=== PATIENT | female | born 2000 ===

== ENCOUNTER 2021-11-16 16:15 | Emergency (ER) | payer SELFPAY ==
[2021-11-16] MEDS ORDERED: SODIUM CHLORIDE 0.9% 1000 ML 1,000 ML IV ONE (16:24)
[2021-11-16] MEDS ORDERED: charcoal activated SOLUTION 25 GM/120 ML PO ONE (16:26)
--- NOTE | 2021-11-16 16:31 | Emergency Department Report ---
ED General Adult HPI - General Chief complaint: Overdose Stated complaint: SI/OD PUI?: No Time Seen by Provider: 11/16/21 16:17 Source: patient, EMS Mode of arrival: Stretcher Limitations: No Limitations - History of Present Illness Initial comments: 21-year-old female brought in by EMS with concerns of overdose of Benadryl; acco rding to patient she took Benadryl about 20 tablets about 30 minutes ago. At the time of evaluation patient is alert oriented x4 patient denies any other discomforts. Patient's motivation is to self-harm. Patient denies fever chills respiratory symptoms or chest pain short of breath cough abdominal pain nausea vomiting or constipation joint pain muscle pain new rash heat or cold intolerance. Patient denies visual auditory and also tactile hallucination. Patient denies homicidal ideation. - Related Data Allergies Allergy/AdvReac Type Severity Reaction Status Date / Time No Known Allergies Allergy Verified 11/16/21 16:19 ED Review of Systems ROS: Stated complaint: SI/OD Other details as noted in HPI Constitutional: see HPI Eyes: as per HPI ENT: as per HPI Respiratory: see HPI Cardiovascular: as per HPI Endocrine: see HPI Gastrointestinal: as per HPI Genitourinary: as per HPI Musculoskeletal: as per HPI Skin: as per HPI Neurological: as per HPI Psychiatric: as per HPI Hematological/Lymphatic: as per HPI ED Past Medical Hx - Past Medical History Previous Medical History?: No - Surgical History Past Surgical History?: No ED Physical Exam - General Limitations: No Limitations General appearance: alert, in no apparent distress, other (TEARFUL; AOX4, GCS15) - Head Head exam: Present: atraumatic, normocephalic, normal inspection - Eye Eye exam: Present: normal appearance Pupils: Present: normal accommodation - ENT ENT exam: Present: normal exam, normal orophraynx, mucous membranes moist - Neck Neck exam: Present: normal inspection - Respiratory Respiratory exam: Present: normal lung sounds bilaterally, respiratory distress - Cardiovascular Cardiovascular Exam: Present: regular rate, normal rhythm - GI/Abdominal GI/Abdominal exam: Present: soft, normal bowel sounds. Absent: distended, tenderness, guarding, rebound, rigid - Extremities Exam Extremities exam: Present: normal inspection, full ROM - Back Exam Back exam: Present: normal inspection, full ROM. Absent: tenderness - Neurological Exam Neurological exam: Present: oriented X3, CN II-XII intact, normal gait - Psychiatric Psychiatric exam: Present: depressed, suicidal ideation. Absent: manic, homicidal ideation - Skin Skin exam: Present: warm ED Course Vital Signs 11/16/21 11/16/21 16:16 17:05 Temperature 98.6 F Pulse Rate 94 H 96 H Respiratory 16 Rate Blood Pressure 105/65 Blood Pressure 113/76 [Left] O2 Sat by Pulse 98 95 Oximetry ED Medical Decision Making - Lab Data Result diagrams: 11/16/21 16:35 11/16/21 16:35 - EKG Data -: EKG Interpreted by Me (NSR AT 72 BPM; NO ST ELEVATION OR DEPRESSION; NO QT/QTC AT 390/428) EKG shows normal: sinus rhythm, axis, intervals, QRS complexes, ST-T waves Rate: normal - Medical Decision Making 4:50 SPOKE TO POISON CONTROL: Monitor for at least 6-8 hours; watch out for anticholinergic effect, sedative effect, may increase heart rate and also blood pressure. If any seizure or agitation; may give benzo. Get initial EGK for baseline and monitor for any QRS widening. Given its within 2 hours, recommend Charcol. Obtain another acetaminophen and salicylic level 4 hours from initial. Mostly supportive care. Critical care attestation.: If time is entered above; I have spent that time in minutes in the direct care of this critically ill patient, excluding procedure time. ED Disposition Disposition: LEFT AGAINST MEDICAL ADVICE Condition: Stable Referrals: PRIMARY CARE, [Primary Care Provider] - 3-5 Days
[2021-11-16 17:00] LABS: Basophils % (Auto) 0.7 % (0.0-1.8); Eosinophils # (Auto) 0.1 K/mm3 (0.0-0.4); Eosinophils % (Auto) 1.6 % (0.0-4.3); Hematocrit 40.3 % (30.3-42.9); Hemoglobin 13.1 gm/dl (10.1-14.3); Lymphocytes # (Auto) 1.7 K/mm3 (1.2-5.4); Lymphocytes % (Auto) 26.2 % (13.4-35.0); Mean Corpuscular HGB Conc 33 % (30-34); Mean Corpuscular Volume 86 fl (79-97); Monocytes # (Auto) 0.4 K/mm3 (0.0-0.8); Monocytes % (Auto) 5.9 % (0.0-7.3); Platelet Count 180 K/mm3 (140-440); Red Blood Count 4.68 M/mm3 (3.65-5.03); Red Cell Distribution Width 13.7 % (13.2-15.2)
[2021-11-16 17:10] VITALS: BP 105/65
[2021-11-16 17:11] LABS: Alanine Aminotransferase 10 units/L (7-56); Albumin 4.5 g/dL (3.9-5); BUN/Creatinine Ratio 10; Blood Urea Nitrogen 8 mg/dL (7-17); Calcium 9.6 mg/dL (8.4-10.2); Hemolysis Index 4
--- NOTE | 2021-11-16 17:12 | XRay Report ---
CHEST 1 VIEW 11/16/2021 4:54 PM INDICATION / CLINICAL INFORMATION: Overdose. COMPARISON: None available. FINDINGS: SUPPORT DEVICES: None. HEART / MEDIASTINUM: No significant abnormality. LUNGS / PLEURA: No significant pulmonary or pleural abnormality. No pneumothorax. ADDITIONAL FINDINGS: No significant additional findings. IMPRESSION: 1. No acute findings. Signer Name: Cristofer Allen MD Signed: 11/16/2021 5:07 PM Workstation Name: [email or web address]
[2021-11-16 17:17] LABS: HCG Qualitative,Urine Negative (Negative)
--- NOTE | 2021-11-18 10:46 | Electrocardiograph Report ---
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
== END 2021-11-16 18:30 | disposition left against medical advice (07) ==
LOC: ED 16:15
DX: T45.0X1A Poisoning by antiallergic and antiemetic drugs, accidental (unintentional), initial encounter (principal); Y92.89 Other specified places as the place of occurrence of the external cause
CPT/HCPCS: 36415; 71045; 80053; 81025; 85025; 93005; 96360; 99285; J7030; 80320; G0480

== ENCOUNTER 2021-11-16 21:17 | Emergency (ER) | payer SELFPAY ==
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
[2021-11-17] MEDS ORDERED: LORazepam 2 MG/ML VIAL IM PRN (01:00)
--- NOTE | 2021-11-17 01:01 | Event Note ---
Date: 11/17/21 Patient was placed on a 1013. Laboratory studies from recent visit are reviewed and appreciated. Psychiatric team typically request urine drug screen and COVID swab. These have been ordered.
[2021-11-17 01:53] LABS: Amphetamine Screen,Urine PRESUMPTIVE NEGATIVE; Benzodiazepines Screen,Urine PRESUMPTIVE NEGATIVE; Cannabinoid Screen,Urine PRESUMPTIVE NEGATIVE; Cocaine Screen,Urine PRESUMPTIVE NEGATIVE; Methadone Screen,Urine PRESUMPTIVE NEGATIVE; Opiate Screen,Urine PRESUMPTIVE NEGATIVE
--- NOTE | 2021-11-17 12:27 | Consultation ---
History of Present Illness - Reason for Consult Consult date: 11/17/21 Reason for consult: Overdose - History of Present Psychiatric Illness ED Note: 21-year-old female brought in by EMS with concerns of overdose of Benadryl; according to patient she took Benadryl about 20 tablets about 30 minutes ago. At the time of evaluation patient is alert oriented x4 patient denies any other discomforts. Patient's motivation is to self-harm. The patient is a 21 year old female with unknown psychiatric history. In my encounter with the patient, she is calm, alert and oriented to self. She states " I came up here but I'm ready to go now." When asking why she came to the ED she states 'I don't remember." The patient made a suicidal attempt which is serious by degree of lethality and intentional. Will continue to refer to inpati ent treatment. PAST PSYCHIATRIC HISTORY Diagnoses: Denies Suicide attempts or Self-harm behavior: Denies Prior psychiatric hospitalizations: Denies Substance Abuse history: Denies Previous psychiatric medications tried: Unable to recall Outpatient treatment: Unknown PAST MEDICAL HISTORY: None reported Family Psychiatric History: None reported or documented SOCIAL HISTORY Marital Status: Single Living Arrangements: Lives with mom Employment Status:Unemployed Access to guns/weapons: Denies Education: 12th grade History of Abuse: Denies Legal History: Unknown REVIEW OF SYSTEMS Constitutional: Negative for weight loss ENT: Negative for stridor Respiratory: Negative for cough or hemoptysis All other systems reviewed and are negative MENTAL STATUS EXAMINATION General Appearance and Behavior: Age appropriate, good hygiene, wearing approp riate clothes, good eye contact, anxious, cooperative Cooperation: Participating/engaged Psychomotor Behavior: Psychomotor normal Mood:ok Affect and affective range: Incongruent with stated mood Thought Process: Confused Thought Content: Speech: Normal tone and pace Suicidal Ideation:Denies Homicidal Ideation: Denies Hallucinations: Denies Delusions: None Impulse Control: Limited Insight and Judgment: Limited insight and judgment Memory: Limited Attention: attentive Orientation: Alert, oriented Diagnoses: Major depressive disorder. Treatment Plan 1013 Continue home meds Start Sertraline 25mg po daily PSYCHOTHERAPY: Supportive psychotherapy provided MEDICAL: Per primary team DELIRIUM PRECAUTIONS: Please re-orient patient frequently, keep lights on during the day, and minimize benzodiazepines and opiates as these medications could worsen patient's confusion. STRATEGY EXECUTION CONSULTANT: Per medical team DISPOSITION:Recommend acute psychiatric inpatient treatment. Will follow. Thanks. Thank you for the consult. Case staffed with Dr. Schmidt Medications and Allergies Medications and Allergies Allergies Allergy/AdvReac Type Severity Reaction Status Date / Time No Known Allergies Allergy Verified 11/16/21 16:19 Active Meds: Active Medications Lorazepam (Lorazepam 2 Mg/Ml Vial) 2 mg IM Q4HR PRN PRN Reason: Agitation Mental Status Exam - Vital signs Last Vital Signs Temp 98.6 F 11/17/21 11:21 Pulse 67 11/17/21 11:21 Resp 16 11/17/21 11:21 BP 112/64 11/17/21 11:21 Pulse Ox 100 11/17/21 11:21 Results All other labs normal.
[2021-11-17] MEDS: SERTRALINE 25 MG TAB PO SCH (16:27)
--- NOTE | 2021-11-17 16:29 | Event Note ---
Date: 11/17/21 Patient is 21 years old female admitted to the ER for evaluation after a suicidal attempt. Patient took 20 tablets of 25 mg of Benadryl. Patient is calm and in no acute distress. Vital signs stable. 's labs reviewed and is unremarkable. Patient has been evaluated by our psychiatric team and advised inpatient psychiatric admission.
--- NOTE | 2021-11-18 10:50 | Electrocardiograph Report ---
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
--- NOTE | 2021-11-18 10:59 | Progress Note ---
Subjective - Reason for Consult Consult date: 11/18/21 Reason for consult: OD - Chief Complaint Chief complaint: The patient was seen today. She is calm, alert and oriented x2. The patient presents with constricted affected and tangential thought process. She is refusing to discuss suicidality. REVIEW OF SYSTEMS Constitutional: Negative for weight loss ENT: Negative for stridor Respiratory: Negative for cough or hemoptysis All other systems reviewed and are negative MENTAL STATUS EXAMINATION General Appearance and Behavior: Age appropriate, good hygiene, wearing appropriate clothes, good eye contact, anxious, cooperative Cooperation: Participating/engaged Psychomotor Behavior: Psychomotor normal Mood:calm Affect and affective range: constricted Thought Process: Tangential Thought Content: Reality oriented Speech: Normal tone and pace Suicidal Ideation:Unable to assess Homicidal Ideation: Unable to assess Hallucinations: Unable to assess Delusions: None Impulse Control: Limited Insight and Judgment: Limited insight and judgment Memory: Limited Attention: attentive Orientation: Alert, oriented Diagnoses: Major depressive disorder Treatment Plan 1013 Continue home meds Continue Sertraline 25mg po daily Start Zyprexa 2.5mg po QHS PSYCHOTHERAPY: Supportive psychotherapy provided MEDICAL: Per primary team DELIRIUM PRECAUTIONS: Please re-orient patient frequently, keep lights on during the day, and minimize benzodiazepines and opiates as these medications could worsen patient's confusion. WIRELESS CONSULTANT: Per medical team DISPOSITION: Recommend acute psychiatric inpatient treatment. Will follow. Thank you for the consult. Case staffed with Dr. Schmidt Medications and Allergies Mental Status Exam - Vital signs Last Vital Signs Temp 98.2 F 11/18/21 09:23 Pulse 89 11/18/21 09:23 Resp 18 11/18/21 09:23 BP 111/64 11/18/21 09:23 Pulse Ox 98 11/18/21 09:23
[2021-11-18] MEDS: SERTRALINE 25 MG TAB PO SCH (11:20)
--- NOTE | 2021-11-18 12:39 | Event Note ---
Date: 11/18/21 The patient was evaluated in the emergency department for symptoms described in the history of present illness. He/she was evaluated in the context of the global COVID-19 pandemic, which necessitated consideration that the patient might be at risk for infection with the virus that causes COVID-19. Institutional protocols and algorithms that pertain to the evaluation of patients at risk for COVID-19 are in a state of rapid change based on information released by regulatory bodies including the CDC and federal and state organizations. These policies and algorithms were followed during the patient's care in the emergency department. Please note that these policies, procedures and recommendations changed on a rapid basis. Laboratory studies, vital signs, nursing documentation, ER documentation, and psychiatric documentation are reviewed and appreciated. Nursing team reports no acute events this morning or concerns. The patient is awake and ambulating and does not appear to be in any acute distress. The patient was deemed medically suitable for psychiatric disposition and placement during her initial ER evaluation. The patient continues to remain medically suitable for psychiatric placement and disposition. sHe is currently pending psychiatric placement. Vital Signs 11/16/21 11/17/21 11/17/21 21:42 11:21 20:54 Temperature 97.8 F 98.6 F 97.2 F L Pulse Rate 90 67 53 L Respiratory 16 16 16 Rate Blood Pressure 113/71 Blood Pressure 118/70 112/64 [Right] O2 Sat by Pulse 100 100 Oximetry 11/17/21 11/18/21 11/18/21 21:00 09:23 11:12 Temperature 97.6 F 98.2 F Pulse Rate 60 89 Respiratory 17 18 18 Rate Blood Pressure Blood Pressure 119/81 111/64 [Right] O2 Sat by Pulse 100 98 99 Oximetry Lab Results 11/17/21 11/18/21 Range/Units Unknown 10:22 Urine Opiates Screen Presumptive negative Urine Methadone Screen Presumptive negative Ur Barbiturates Screen Presumptive negative Ur Phencyclidine Scrn Presumptive negative Ur Amphetamines Screen Presumptive negative U Benzodiazepines Scrn Presumptive negative Urine Cocaine Screen Presumptive negative U Marijuana (THC) Screen Presumptive negative Drugs of Abuse Note Disclamer SARS-CoV-2 (PCR) Negative (Negative)
[2021-11-18 14:50] VITALS: BP 126/85
== END 2021-11-18 14:57 | disposition home or self-care (01) ==
LOC: ED 21:17
DX: Z13.30 Encounter for screening examination for mental health and behavioral disorders, unspecified (principal); Z20.822 Contact with and (suspected) exposure to COVID-19; F10.20 Alcohol dependence, uncomplicated
CPT/HCPCS: 80307; 93005; 99285; U0003; 99283